=== PATIENT | female | born 1975 | race Caucasian/White ===

== ENCOUNTER → 2017-07-04 | Outpatient (CLI) | payer BC, OTHER ==
[~2017-07-04] MED LIST: IBUP80TA PO; PERCOCET PO
--- NOTE | 2017-07-05 10:02 | REPMRS ---
Patient History The patient states she had a clinical breast exam in APRIL 2017.Patient had first child at age 30. Family history of unknown cancer in sister at age 10 and unknown cancer in maternal grandmother at age 50 or over. Took hormonal contraceptives for 5 years. Digital Mammo Screening Bilat: July 04, 2017 - Exam #: [id number] Bilateral CC and MLO view(s) were taken. Technologist: Marylu Cox, Technologist Prior study comparison: May 10, 2016, bilateral digital mammo screening bilat performed at [facility]. May 09, 2015, bilateral digital mammo screening bilat performed at [facility]. FINDINGS: The breast tissue is heterogeneously dense. This may lower the sensitivity of mammography. There has been no change in the appearance of the mammogram from the prior studies. There is a moderate amount of residual fibroglandular tissue which is fairly symmetric. There is no interval development of dominant mass, areas of architectural distortion, or clustered microcalcification typical of malignancy. ASSESSMENT: BI-RADS/ACR category 1 mammogram. Negative. Recommendation Routine screening mammogram in 1 year (for women over age 40). This mammogram was interpreted with the aid of an FDA-approved computer-aided dectection system. Electronically Signed By: Erick Peoples MD 07/05/17 1002
== END ==
LOC: M RAD 16:37
PROVIDERS: ATTEND Obstetrics & Gynecology
DX: Z12.31 Encounter for screening mammogram for malignant neoplasm of breast (principal)

== ENCOUNTER → 2017-07-14 | Outpatient (CLI) | payer BC, OTHER ==
--- NOTE | 2017-07-14 09:16 | REP ---
LUMBAR SPINE COMPLETE: 07/14/2017 CLINICAL HISTORY: Right-sided low back pain without sciatica. FINDINGS: No prior study. Five views provided. The AP view shows pedicles, spinous and transverse processes intact. No scoliosis. Lower thoracic levels show the visualized ribs intact. Pelvic ring seen was intact. SI joint, sacral ala and foramina as well as the iliac wings unremarkable. On oblique views, there is no spondylolysis or spondylolisthesis. The normal lordosis is seen on the lateral view. Disc space heights are maintained. There is no compression deformity or destructive lesion. IMPRESSION: 1. Negative lumbar spine series.
== END ==
LOC: M CLY 08:03
PROVIDERS: ATTEND Family Medicine
DX: M54.5 Low back pain (principal)

== ENCOUNTER → 2017-07-14 | Outpatient (REF) | payer OTHER ==
[2017-07-14 13:01] LABS: BASO % 0.4 % (0.0-1.0); EOS # 0.1 K/mm3 (0.0-0.50); EOS % 1.9 % (0.0-3.0); LARGE UNSTAINED CELL # 0.2 K/mm3 (0.0-0.4); LARGE UNSTAINED CELL % 2.6 % (0.0-4.0); LYMPH # 2.1 K/mm3 (1.5-4.5); LYMPH % 32.7 % (24.0-44.0); MEAN CORPUSCULAR HEMOGLOBIN 33.4 pg (27.0-33.0); MEAN CORPUSCULAR VOLUME 98.1 fl (80.0-96.0); MONO # 0.3 K/mm3 (0.0-0.8); MONO % 5.2 % (0.0-5.0); NEUTROPHILS # 3.6 K/mm3 (1.8-7.7); NEUTROPHILS % 57.2 % (36.0-66.0); PLATELET COUNT, AUTOMATED 413 k/mm3 (150-450); RED CELL DISTRIBUTION WIDTH 11.8 % (11.5-14.5); WHITE BLOOD COUNT 6.4 K/mm3 (4.0-10.0)
[2017-07-14 13:03] LABS: THYROXINE (T4) 9.5 UG/DL (4.5-12.0)
[2017-07-14 13:39] LABS: ERYTHROCYTE SEDIMENTATION RATE 17 mm/hr (0-20)
[2017-07-17 00:06] LABS: Lyme Disease IgG/IgM Antibodie <0.91 ISR (0.00-0.90); Lyme Disease IgM Ab Quantitati <0.80 index (0.00-0.79)
== END ==
LOC: M SFHCCLAY 07:51
PROVIDERS: ATTEND Family Medicine
DX: M54.5 Low back pain (principal); R63.5 Abnormal weight gain; R53.83 Other fatigue; M25.551 Pain in right hip; M25.572 Pain in left ankle and joints of left foot; M25.571 Pain in right ankle and joints of right foot

== ENCOUNTER → 2018-07-11 | Outpatient (CLI) | payer BC, OTHER | LOC: M RAD 09:09 | DX: Z12.31 Encounter for screening mammogram for malignant neoplasm of breast (principal); N60.31 Fibrosclerosis of right breast; N60.32 Fibrosclerosis of left breast | CPT/HCPCS: 77067 ==

== ENCOUNTER → 2021-02-16 | Outpatient (CLI) | payer BC ==
--- NOTE | 2021-02-16 15:03 | REPMRS ---
Patient History The patient states she has not had a clinical breast exam in over a year. Family history of unknown cancer at age 10 in sister, unknown cancer at age 50 or over in maternal grandmother. Took hormonal contraceptives for 5 years. 3D TOMOSYNTHESIS WAS PERFORMED. The [place] lifetime risk for breast cancer is 14.8%. Volpara breast density c. Digital Woman Screen Mammo: February 16, 2021 - Exam #: [id number] Bilateral CC and MLO view(s) were taken. Technologist: Jannet Malloy, Technologist Prior study comparison: July 11, 2018, bilateral digital mammo screening bilat, performed at [facility]. July 04, 2017, bilateral digital mammo screening bilat, performed at [facility]. FINDINGS: The breast tissue is heterogeneously dense. This may lower the sensitivity of mammography. There has been no change in the appearance of the mammogram from the prior studies. There is a moderate amount of residual fibroglandular tissue which is fairly symmetric. There is no interval development of dominant mass, areas of architectural distortion, or clustered microcalcification typical of malignancy. Assessment: BI-RADS/ACR category 1 mammogram. Negative Mammogram. Recommendation Routine screening mammogram in 1 year (for women over age 40). This mammogram was interpreted with the aid of an FDA-approved computer-aided dectection system. Electronically Signed By: Erick Peoples MD 02/16/21 [id number]
== END ==
LOC: M WHC 13:06
PROVIDERS: ATTEND Advanced Practice Midwife
DX: Z12.31 Encounter for screening mammogram for malignant neoplasm of breast (principal); R92.2 Inconclusive mammogram

== ENCOUNTER → 2022-05-26 | Outpatient (CLI) | payer BC, OTHER | LOC: M WHC 15:44 | PROVIDERS: ATTEND Obstetrics & Gynecology | DX: Z12.31 Encounter for screening mammogram for malignant neoplasm of breast (principal) ==

== ENCOUNTER 2023-09-07 13:21 | Day surgery (SDC) | payer BC, OTHER ==
[~2023-09-07] VITALS: Ht 160 cm; Wt 78.8 kg
[~2023-09-07 13:21] MED LIST changes: +LR 1,000 ML IV SCH; +SOLI5TAB PO
[2023-09-07] MEDS ORDERED: ACETAMINOPHEN *IV* 1,000 MG in IV 0 EA IV ONE (13:55)
[2023-09-07] MEDS ORDERED: ceFAZolin SOD 2 GM in IV 1 EA IV ONE (13:55)
[2023-09-07] MEDS ORDERED: LIDOCAINE 2% 100MG/5ML SDV (FOR ANES.) As Ordered ONE (14:18)
[2023-09-07] MEDS ORDERED: propofoL 200 MG/20 ML VIAL As Ordered ONE ×2 (14:18→16:20)
[2023-09-07] MEDS ORDERED: MIDAZOLAM INJ 2MG/2ML VIAL As Ordered ONE (14:18)
[2023-09-07] MEDS ORDERED: fentaNYL 100 MCG/2 ML INJECTION As Ordered ONE (14:18)
[2023-09-07 14:27] LABS: HEMATOCRIT 44.3 % (36.0-47.0); MEAN CORPUSCULAR HEMOGLOBIN 32.2 pg (27.0-33.0); MEAN CORPUSCULAR HGB CONC 33.9 g/dl (32.0-36.5); MEAN CORPUSCULAR VOLUME 95.1 fl (80.0-96.0); PLATELET COUNT, AUTOMATED 401 10^3/uL (150-450); RED BLOOD COUNT 4.66 10^6/uL (4.00-5.40); WHITE BLOOD COUNT 9.7 10^3/uL (4.0-10.0)
[2023-09-07] MEDS ORDERED: LIDOCAINE W/EPINEPHRINE 1% 20ML VIAL As Ordered ONE (15:07)
[2023-09-07] MEDS ORDERED: CHLOROPROCAINE PRES. FREE 3% 20ML VIAL As Ordered ONE (15:47)
[2023-09-07] MEDS ORDERED: ACETAMINOPHEN 1000MG 100ML IV BAG As Ordered ONE (15:55)
[2023-09-07] MEDS ORDERED: ONDANSETRON 4MG 2ML VIAL As Ordered ONE (16:10)
[2023-09-07] MEDS ORDERED: KETOROLAC 60MG 2ML VIAL As Ordered ONE (16:17)
[2023-09-07] MEDS ORDERED: ONDANSETRON 4MG 2ML VIAL IV PRN (16:40)
[2023-09-07] MEDS ORDERED: fentaNYL 100 MCG/2 ML INJECTION IV PRN (16:40)
[2023-09-07] MEDS ORDERED: oxyCODONE 5MG TAB PO PRN (16:40)
[2023-09-07] MEDS ORDERED: HYDROMORPHONE HCL 0.5 MG/ 0.5 ML SYRINGE IV PRN (16:40)
[2023-09-07 18:09] VITALS: BP 141/80; TEMP 97.9; O2SAT 100
[2023-09-07] MEDS ORDERED: PERCOCET 5MG/325MG TAB PO PRN (18:10)
[2023-09-07] MEDS ORDERED: LR 1,000 ML IV SCH (18:15)
[2023-09-07] MEDS ORDERED: IBUPROFEN 800 MG TAB PO SCH (22:00)
== END 2023-09-07 18:22 | disposition home or self-care (01) ==
LOC: M SDC 13:21
PROVIDERS: ATTEND Obstetrics & Gynecology
DX: N39.3 Stress incontinence (female) (male) (principal); J00 Acute nasopharyngitis [common cold]; Z79.899 Other long term (current) drug therapy
CPT/HCPCS: 36415; 57288; 85027; 86850; 86900; 86901; C1771; J0131; J0690; J1885; J2250; J2401; J2405; J3010

== ENCOUNTER → 2024-06-04 | Outpatient (CLI) | payer BC ==
[~2024-06-04] MED LIST changes: -LR 1,000 ML IV SCH
== END ==
LOC: M WHC 15:24
PROVIDERS: ATTEND Obstetrics & Gynecology
DX: Z12.31 Encounter for screening mammogram for malignant neoplasm of breast (principal); Z13.820 Encounter for screening for osteoporosis; M85.851 Other specified disorders of bone density and structure, right thigh; M85.852 Other specified disorders of bone density and structure, left thigh

== ENCOUNTER 2024-09-18 20:50 | Emergency (ER) | payer BC ==
[~2024-09-18] VITALS: Ht 160 cm; Wt 83.9 kg
[2024-09-18 21:57] VITALS: BP 142/84; TEMP 98.1; O2SAT 98
== END 2024-09-18 22:04 | disposition home or self-care (01) ==
LOC: M ED 20:50
DX: R14.1 Gas pain (principal); N32.81 Overactive bladder; Z79.899 Other long term (current) drug therapy

== ENCOUNTER → 2024-10-10 | Outpatient (REF) | payer BC ==
[2024-10-10 12:25] LABS: ALBUMIN 3.8 G/DL (3.2-5.2); ALKALINE PHOSPHATASE 80 U/L (35-104); ALT/SGPT 36 U/L (7.0-40); AST/SGOT 17 U/L (<34); BILIRUBIN,TOTAL 0.3 MG/DL (0.3-1.2); BLOOD UREA NITROGEN 16 MG/DL (9-23); CALCIUM LEVEL 10.3 MG/DL (8.5-10.1); CARBON DIOXIDE LEVEL 30 MMOL/L (20-31); CHLORIDE LEVEL 107 MMOL/L (98-107); CHOLESTEROL LEVEL 227 MG/DL (<200); CHOLESTEROL RISK RATIO 4.04 (<5); CREATININE FOR GFR 0.96 MG/DL (0.55-1.30); GLOMERULAR FILTRATION RATE > 60.0 (>51); GLUCOSE, FASTING 101 MG/DL (60-100); HDL CHOLESTEROL 56.1 MG/DL (>40); LDL CHOLESTEROL 149.3 MG/DL (<100); NON-HDL-C 170.9 MG/DL; POTASSIUM SERUM 4.9 MMOL/L (3.5-5.1); SODIUM LEVEL 142 MMOL/L (136-145); TOTAL PROTEIN 7.7 G/DL (5.7-8.2); TRIGLYCERIDES LEVEL 108 MG/DL (<150)
== END ==
LOC: M SFHCCLAY 09:21
PROVIDERS: ATTEND Physician Assistant
DX: Z00.00 Encounter for general adult medical examination without abnormal findings (principal); E78.5 Hyperlipidemia, unspecified

== ENCOUNTER → 2024-10-19 | Outpatient (CLI) | payer BC | LOC: M SLEEP HO 11:14 | PROVIDERS: ATTEND Physician Assistant | DX: G47.33 Obstructive sleep apnea (adult) (pediatric) (principal); R06.83 Snoring ==

== ENCOUNTER → 2025-07-01 | Outpatient (CLI) | payer BC ==
[~2025-07-01] MED LIST changes: +LISI20TA33 PO
== END ==
LOC: M WHC 15:00
PROVIDERS: ATTEND Obstetrics & Gynecology
DX: Z12.31 Encounter for screening mammogram for malignant neoplasm of breast (principal)